=== PATIENT | male | born 1980 | race Caucasian/White ===

== ENCOUNTER → 2019-12-11 | Outpatient (CLI) | payer OTHER ==
--- NOTE | 2019-12-11 15:12 | XR ---
EXAMINATION TYPE: XR ankle complete RT DATE OF EXAM: 12/11/2019 CLINICAL HISTORY: Right ankle pain with no known injury. TECHNIQUE: Frontal, lateral and oblique images of the right ankle are obtained. COMPARISON: None. FINDINGS: There is no acute fracture/dislocation evident in the right ankle. Old well-corticated fra cture fragment is seen distal to the medial malleolus. Smaller old well-corticated fracture fragment distal to the fibula on the oblique view. Minimal degenerative spurring of the anterior process of th e talus. Some flattening of the talus on the lateral view only and osteophyte of the anterior tibia. The ankle mortise appears within normal limits. The overlying soft tissue appears unremarkable. Cent rally lucent possible fat necrosis of the medial soft tissues of the right lower extremity adjacent t o the distal tibial diaphysis. IMPRESSION: 1. No acute fracture or dislocation in the right ankle. 3. Well-corticated fracture fragments distal to the medial and lateral malleolus with small osteophyt e of the distal anterior tibia and some flattening of the talus on the lateral view. 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
--- NOTE | 2019-12-11 15:13 | XR ---
EXAMINATION TYPE: XR Hip Complete RT DATE OF EXAM: 12/11/2019 CLINICAL HISTORY: Right hip pain with no known injury TECHNIQUE: AP and frogleg views of the right hip are obtained. COMPARISON: None. FINDINGS: There is no acute fracture/dislocation evident in the right hip. Small cam deformity of th e right lateral femoral head neck junction. The joint space in the right hip appears within normal li mits. The overlying soft tissue appears unremarkable. IMPRESSION: 1. Small cam deformity of the right lateral femoral head neck junction. This can predispose the patie nt to femoral acetabular impingement syndrome. 2. No acute fracture or dislocation in the right hip.
== END | disposition home or self-care (01) ==
LOC: RADXRMAIN 14:20
PROVIDERS: ATTEND Family Medicine
DX: M21.951 Unspecified acquired deformity of right thigh (principal); M84.471G Pathological fracture, right ankle, subsequent encounter for fracture with delayed healing
CPT/HCPCS: 73502

== ENCOUNTER 2021-02-20 18:56 | Emergency (ER) | payer OTHER ==
[2021-02-20 19:04] VITALS: BP 154/81; PULSE 82; RESP 20; TEMP 97.9
[2021-02-20] MEDS ORDERED: KETOROLAC 15 MG/ML 1 ML VIAL IM STA (19:21)
--- NOTE | 2021-02-20 19:28 | ED ---
Upper Extremity HPI - General Chief Complaint: Extremity Injury, Upper Stated Complaint: hand injury Time Seen by Provider: 02/20/21 19:16 Source: patient, RN notes reviewed Mode of arrival: ambulatory Limitations: no limitations - History of Present Illness Initial Comments: Patient was at the store buying 50# bag of dirt and as he was trying to balance it. It fell bending left wrist backward with most of the weight bending back his fourth and fifth fingers. Patient states that he feels tingling up the left side of his arm up to his elbow. There is no swelling or deformity noted patient denies any other injuries patient states he has not had any pain medication prior to arrival. Patient denies any medical history -: hour(s) (2) Other Extremity Injury: Wrist: Left Other Injuries: none Place: outdoors Severity scale (1-10): 8 Improves With: immobilization Worsens With: movement of extremity Context: injury (Bend backwards carrying a 50 pound bag of wet dirt) Associated Symptoms: denies other symptoms - Related Data Home Medications Medication Instructions Recorded Confirmed Cetirizine HCl [Zyrtec] 10 mg PO DAILY 02/20/21 02/20/21 Guaifenesin/Pseudoephedrne HCl 1 tab PO DAILY PRN 02/20/21 02/20/21 [Mucinex D ER 1,200-120 mg Tab] Pravastatin Sodium [Pravachol] 40 mg PO HS 02/20/21 02/20/21 Previous Rx's Medication Instructions Recorded Ibuprofen [Motrin] 800 mg PO Q6HR #30 tab 02/20/21 Allergies Allergy/AdvReac Type Severity Reaction Status Date / Time Penicillins Allergy Anaphylaxis Verified 02/20/21 20:31 Review of Systems ROS Statement: Those systems with pertinent positive or pertinent negative responses have been documented in the HPI. ROS Other: All systems not noted in ROS Statement are negative. Past Medical History Past Medical History: Hyperlipidemia History of Any Multi-Drug Resistant Organisms: None Reported Past Surgical History: Adenoidectomy, Ear Surgery, Orthopedic Surgery, Tonsillectomy Additional Past Surgical History / Comment(s): rt shoulder, nasal surgery Past Psychological History: No Psychological Hx Reported Smoking Status: Never smoker Past Alcohol Use History: Occasional Past Drug Use History: None Reported General Exam Limitations: no limitations General appearance: alert, in no apparent distress Head exam: Present: atraumatic, normocephalic, normal inspection Eye exam: Present: normal appearance, PERRL, EOMI. Absent: scleral icterus, conjunctival injection, periorbital swelling ENT exam: Present: normal exam, normal oropharynx, mucous membranes moist Neck exam: Present: normal inspection, full ROM. Absent: tenderness, meningismus, lymphadenopathy Respiratory exam: Present: normal lung sounds bilaterally. Absent: respiratory distress, wheezes, rales, rhonchi, stridor, decreased breath sounds Cardiovascular Exam: Present: regular rate, normal rhythm, normal heart sounds. Absent: systolic murmur, diastolic murmur, rubs, gallop, clicks Left Elbow exam: Present: normal inspection, full ROM. Absent: tenderness, swelling, abrasion, laceration, ecchymosis, deformity Forearm Wrist exam: Present: normal inspection, tenderness, other (Unable to flex and extend wrist). Absent: full ROM, swelling, abrasion, laceration, ecchymosis, deformity, dislocation Hand Wrist exam: Present: normal inspection, tenderness (Unable to perform the okay sign with fourth and fifth digits). Absent: full ROM Neuro motor exam: Present: thumb opposition intact, thumb IP flexion intact, thumb adduction intact. Absent: wrist extension intact Vascular: Present: normal capillary refill, radial pulse, ulnar pulse. Absent: vascular compromise Back exam: Present: full ROM. Absent: tenderness, CVA tenderness (R), CVA tenderness (L) Neurological exam: Present: alert, oriented X3, CN II-XII intact Psychiatric exam: Present: normal affect, normal mood Skin exam: Present: warm, dry, intact, normal color. Absent: rash Course Vital Signs 02/20/21 19:00 Temperature 97.9 F Pulse Rate 82 Respiratory 20 Rate Blood Pressure 154/81 O2 Sat by Pulse 100 Oximetry Procedures - Orthopedic Splinting/Casting Injury #1 Side: left Upper Extremity Immobilizer: ulnar gutter, synthetic pre-padded splint Medical Decision Making - Medical Decision Making There is nondisplaced fracture of the fourth metacarpal shaft, no dislocation. Short arm ulnar gutter applied, neurovascularly intact prior to and post splint. patient will referred to orthopedic associates. Case discussed with Dr. Hassan who is agreeable to this plan of care Disposition Clinical Impression: Metacarpal bone fracture Disposition: HOME SELF-CARE Condition: Good Instructions (If sedation given, give patient instructions): Hand Fracture (ED) Additional Instructions: Rest, ice, wear splint as applied, and elevate. Take medication as prescribed and follow-up with orthopedics in 1 week. Prescriptions: Ibuprofen [Motrin] 800 mg PO Q6HR #30 tab Is patient prescribed a controlled substance at d/c from ED?: No Referrals: Mandeep Flores Jr, DO [Primary Care Provider] - 1-2 days Fazal Almonte MD [STAFF PHYSICIAN] - 1-2 days Time of Disposition: 20:51
--- NOTE | 2021-02-20 19:55 | XR ---
Result: History: Pain. Comparison: None available. Technique: 4 views of the right wrist. Findings: There is nondisplaced fracture of the fourth metacarpal shaft. No evidence of dislocation. The joint spaces are preserved. Impression: Fourth metacarpal fracture.
[2021-02-20] MEDS ORDERED: ACET/COD 300 MG/30 MG STARTER PACK 6 TAB BTL PO STA (20:51)
[2021-02-20] MEDS ORDERED: HYDROcodone/APAP 5-325MG 1 EACH TAB PO STA (21:01)
== END 2021-02-20 21:07 | disposition home or self-care (01) ==
LOC: EC 18:56
DX: S62.355A Nondisplaced fracture of shaft of fourth metacarpal bone, left hand, initial encounter for closed fracture (principal); E78.5 Hyperlipidemia, unspecified; Z88.0 Allergy status to penicillin; W18.30XA Fall on same level, unspecified, initial encounter; Y92.89 Other specified places as the place of occurrence of the external cause
CPT/HCPCS: 73110; 99284; 96372; 29125; J1885

== ENCOUNTER 2024-04-23 16:57 | Emergency (ER) | payer OTHER ==
[2024-04-23 17:10] VITALS: TEMP 97.6
--- NOTE | 2024-04-23 17:52 | ED ---
Allergic Reaction HPI - General Chief complaint: Allergic Reaction Stated complaint: Hives,Back Pain Time Seen by Provider: 04/23/24 17:10 Source: patient, RN notes reviewed Mode of arrival: ambulatory Limitations: no limitations - History of Present Illness Initial Comments: This is a 43-year-old male with a history of seasonal allergies who presents em ergency department complaint of urticaria with neuritis and ear swelling that began this afternoon. Patient states that he was cleaning his house when he began to feel mildly short of breath and experience hives. States that the shortness of breath has improved since arrival to the emergency department. He denies tongue or lip swelling, that he has been experiencing edema of the bilateral ears with redness. Patient denies use of new perfumes, soaps, lotions, detergents. Was prescribed Flexeril approximately 2 weeks ago by his primary care provider and has taken a few doses of this medication for back pain. took a Benadryl at home this evening when symptoms arose. - Related Data Home Medications Medication Instructions Recorded Confirmed Cetirizine HCl [Zyrtec] 10 mg PO DAILY 02/20/21 02/20/21 Guaifenesin/Pseudoephedrne HCl 1 tab PO DAILY PRN 02/20/21 02/20/21 [Mucinex D ER 1,200-120 mg Tab] Pravastatin Sodium [Pravachol] 40 mg PO HS 02/20/21 02/20/21 Previous Rx's Medication Instructions Recorded Ibuprofen [Motrin] 800 mg PO Q6HR #30 tab 02/20/21 Famotidine [Pepcid] 20 mg PO BID #10 tablet 04/23/24 predniSONE 50 mg PO DAILY #5 tab 04/23/24 Allergies Allergy/AdvReac Type Severity Reaction Status Date / Time Penicillins Allergy Anaphylaxis Verified 04/23/24 17:10 Review of Systems ROS Statement: Those systems with pertinent positive or pertinent negative responses have been documented in the HPI. ROS Other: All systems not noted in ROS Statement are negative. Past Medical History Past Medical History: No Reported History Additional Past Medical History / Comment(s): issues with back pain History of Any Multi-Drug Resistant Organisms: None Reported Past Surgical History: Adenoidectomy, Ear Surgery, Orthopedic Surgery, Tonsillectomy Additional Past Surgical History / Comment(s): rt shoulder, nasal surgery Past Psychological History: No Psychological Hx Reported Smoking Status: Never smoker Past Alcohol Use History: Occasional Past Drug Use History: Marijuana General Exam Limitations: no limitations General appearance: alert, in no apparent distress Head exam: Present: atraumatic, normocephalic, normal inspection Eye exam: Present: normal appearance, PERRL, EOMI. Absent: scleral icterus, conjunctival injection, periorbital swelling Expanded Ear exam: Present: other (auricular erythema and edema) Mouth exam: Present: normal external inspection Throat exam: normal inspection. negative: tonsillar erythema, tonsillomegaly Neck exam: Present: normal inspection. Absent: tenderness, meningismus, lymphadenopathy Respiratory exam: Present: normal lung sounds bilaterally. Absent: respiratory distress, wheezes, rales, rhonchi, stridor Cardiovascular Exam: Present: regular rate, normal rhythm, normal heart sounds. Absent: systolic murmur, diastolic murmur, rubs, gallop, clicks GI/Abdominal exam: Present: soft, normal bowel sounds. Absent: distended, tenderness, guarding, rebound, rigid Extremities exam: Present: normal inspection, full ROM, normal capillary refill. Absent: tenderness, pedal edema, joint swelling, calf tenderness Back exam: Present: normal inspection, tenderness (lumbar) Neurological exam: Present: alert, oriented X3, CN II-XII intact Psychiatric exam: Present: normal affect, normal mood Skin exam: Present: warm, dry, rash, urticaria (diffuse, most notable over the superior lower extremities) Course Vital Signs 04/23/24 17:04 Temperature 97.6 F Pulse Rate 114 H Respiratory 20 Rate Blood Pressure 145/93 O2 Sat by Pulse 96 Oximetry Medical Decision Making - Medical Decision Making Was pt. sent in by a medical professional or institution (, PA, SOLAR PHOTOVOLTAIC INSTALLER, urgent care, hospital, or detention...) When possible be specific @ -No Did you speak to anyone other than the patient for history (EMS, parent, family, police, friend...)? What history was obtained from this source @ -No Did you review nursing and triage notes (agree or disagree)? Why? @ -I reviewed and agree with nursing and triage notes Were old charts reviewed (outside hosp., previous admission, EMS record, old EKG, old radiological studies, urgent care reports/EKG's, detention records)? Report findings @ -No old charts were reviewed Differential Diagnosis (chest pain, altered mental status, abdominal pain women, abdominal pain men, vaginal bleeding, weakness, fever, dyspnea, syncope, headache, dizziness, GI bleed, back pain, seizure, CVA, palpatations, mental health, musculoskeletal)? @ -urticaria, allergic reaction, angioedema, allergic dermatitis, contact dermatitis, this list is not all inclusive EKG interpreted by me (3pts min.). @ -none X-rays interpreted by me (1pt min.). @ -None done CT interpreted by me (1pt min.). @ -None done U/S interpreted by me (1pt. min.). @ -None done What testing was considered but not performed or refused? (CT, X-rays, U/S, labs)? Why? @ -None What meds were considered but not given or refused? Why? @ -None Did you discuss the management of the patient with other professionals (professionals i.e. , PA, SOLAR PHOTOVOLTAIC INSTALLER, lab, RT, psych nurse, psychosocial rehabilitation counselor, automatic buffer, teacher, sba business development officer, watch case polisher)? Give summary @ -No Was smoking cessation discussed for >3mins.? @ -No Was critical care preformed (if so, how long)? @ -No Were there social determinants of health that impacted care today? How? (Homelessness, low income, unemployed, alcoholism, drug addiction, transportation, low edu. Level, literacy, decrease access to med. care, senior care, rehab)? @ -No Was there de-escalation of care discussed even if they declined (Discuss DNR or withdrawal of care, Hospice)? DNR status @ -No What co-morbidities impacted this encounter? (DM, HTN, Smoking, COPD, CAD, Cancer, CVA, ARF, Chemo, Hep., AIDS, mental health diagnosis, sleep apnea, morbid obesity)? @ -None Was patient admitted / discharged? Hospital course, mention meds given and route, prescriptions, significant lab abnormalities, going to OR and other pertinent info. @ -Discharged. 43-year-old male with urticaria. On examination patient has widespread urticaria that is blanchable. Patient states this area is also pruritic. Patient is stable and resting comfortably on room air with a oxygen saturation of 100. He is in no signs of acute distress or difficulty breathing. There are no signs of angioedema, no lip swelling or tongue swelling. Patient does have bilateral auricular erythema and edema. He is symptomatically treated with steroids, Benadryl, and Pepcid. On reevaluation, he states that his swelling of his ears is getting better and the itching has begun to subside. Patient is still resting comfortably and is stable for discharge, BP 130s/80s and HR 70s. He will be sent a prescription for steroids and recommend to continue Benadryl and Pepcid at home as needed for relief. Recommend the patient follows up with her primary care provider this week for further evaluation. All questions answered at bedside and strict return parameters discussed with the patient he is verbalized understanding. Case discussed with Dr. Beltran. Undiagnosed new problem with uncertain prognosis? @ -No Drug Therapy requiring intensive monitoring for toxicity (Heparin, Nitro, Insulin, Cardizem)? @ -No Were any procedures done? @ -No Diagnosis/symptom? @ -urticuaria, allergic reaction Acute, or Chronic, or Acute on Chronic? @ -acute Uncomplicated (without systemic symptoms) or Complicated (systemic symptoms)? @ -uncomplicated Side effects of treatment? @ -No Exacerbation, Progression, or Severe Exacerbation? @ -No Poses a threat to life or bodily function? How? (Chest pain, [place], [place], pneumonia, PE, COPD, DKA, ARF, appy, cholecystitis, CVA, Diverticulitis, Homicidal, Suicidal, threat to staff... and all critical care pts) @ -No Disposition Clinical Impression: Urticaria, Allergic reaction Disposition: HOME SELF-CARE Condition: Good Instructions (If sedation given, give patient instructions): Urticaria (ED) Additional Instructions: Complete full course of steroids as prescribed. Take Benadryl and Pepcid as needed for continued antihistamine relief. Return to the emergency department for any new or worsening symptoms. Recommend follow-up with your primary care provider this week for further evaluation. Prescriptions: Famotidine [Pepcid] 20 mg PO BID #10 tablet predniSONE 50 mg PO DAILY #5 tab Is patient prescribed a controlled substance at d/c from ED?: No Referrals: Lela Sun MD [Primary Care Provider] - 1-2 days Time of Disposition: 18:45
[2024-04-23] MEDS: FAMOTIDINE 20 MG TAB PO STA (18:13)
[2024-04-23] MEDS: diphenhydrAMINE 50 MG/ML 1 ML VIAL IM STA (18:14)
[2024-04-23] MEDS: methylPREDNISolone SOD SUCCI 125 MG/2 ML VIAL IM ONE (18:17)
[2024-04-23 19:04] VITALS: BP 130/86; PULSE 75; RESP 18
== END 2024-04-23 19:05 | disposition home or self-care (01) ==
LOC: EC 16:57
DX: L50.0 Allergic urticaria (principal); Z88.0 Allergy status to penicillin
CPT/HCPCS: 99283; 96372 ×2; J1200; J2919

== ENCOUNTER 2024-04-27 02:48 | Emergency (ER) | payer OTHER ==
[2024-04-27 02:57] VITALS: RESP 20
[2024-04-27] MEDS: LIDOCAINE 4% PATCH TOPICAL ONE (03:19)
[2024-04-27] MEDS: DEXAMETHASONE SOD PHOSPHATE 10 MG/ML 1 ML VIAL IM STA (03:20)
[2024-04-27] MEDS: HYDROmorphone 0.5 MG/0.5 ML SYRINGE IM STA ×2 (03:20→04:05)
[2024-04-27] MEDS: KETOROLAC 15 MG/ML 1 ML VIAL IM STA (03:21)
--- NOTE | 2024-04-27 04:34 | ED ---
Back Pain HPI <Flakito Anglin - Last Filed: 04/27/24 05:31> - General Source: patient Limitations: no limitations <Deacon Donnelly - Last Filed: 04/27/24 16:43> - General Chief Complaint: Back Pain/Injury Stated Complaint: back pain Time Seen by Provider: 04/27/24 02:57 - History of Present Illness Initial Comments: 43-year-old male presenting with chief complaint of back pain. Patient has been having lower back pain for the last 10 days. He saw his PCP and was given a muscle relaxer which did little to improve the pain. He denies any known injury or trauma. He did receive a steroid when he was here recently for hives, he states that the steroids did not do much to help his pain either. He does have radiation of pain down the right leg. No loss of bowel or bladder control or saddle paresthesia. He has been having difficulty sleeping the last 2 nights due to pain. (Deacon Donnelly) - Related Data Home Medications Medication Instructions Recorded Confirmed Cetirizine HCl [Zyrtec] 10 mg PO DAILY 02/20/21 02/20/21 Guaifenesin/Pseudoephedrne HCl 1 tab PO DAILY PRN 02/20/21 02/20/21 [Mucinex D ER 1,200-120 mg Tab] Pravastatin Sodium [Pravachol] 40 mg PO HS 02/20/21 02/20/21 Previous Rx's Medication Instructions Recorded Ibuprofen [Motrin] 800 mg PO Q6HR #30 tab 02/20/21 Famotidine [Pepcid] 20 mg PO BID #10 tablet 04/23/24 predniSONE 50 mg PO DAILY #5 tab 04/23/24 Ibuprofen [Motrin] 600 mg PO Q8HR PRN #20 tab 04/27/24 Lidocaine 5% Patch [Lidoderm] 1 patch TOPICAL DAILY #10 patch 04/27/24 methocarbamoL [Robaxin-750] 1,500 mg PO TID #42 tab 04/27/24 Allergies Allergy/AdvReac Type Severity Reaction Status Date / Time Penicillins Allergy Anaphylaxis Verified 04/27/24 02:53 Review of Systems ROS Other: All systems not noted in ROS Statement are negative. <Flakito Anglin - Last Filed: 04/27/24 05:31> ROS Other: All systems not noted in ROS Statement are negative. <ConyJohnnydalila - Last Filed: 04/27/24 16:43> ROS Statement: Those systems with pertinent positive or pertinent negative responses have been documented in the HPI. Past Medical History Past Medical History: No Reported History Additional Past Medical History / Comment(s): issues with back pain History of Any Multi-Drug Resistant Organisms: None Reported Past Surgical History: Adenoidectomy, Ear Surgery, Orthopedic Surgery, Tonsillectomy Additional Past Surgical History / Comment(s): rt shoulder, nasal surgery Past Psychological History: No Psychological Hx Reported Smoking Status: Never smoker Past Alcohol Use History: Occasional Past Drug Use History: Marijuana <ConyJohnnydalila - Last Filed: 04/27/24 16:43> General Exam Limitations: no limitations General appearance: alert, in no apparent distress Head exam: Present: atraumatic, normocephalic Eye exam: Present: normal appearance, EOMI Neck exam: Present: normal inspection. Absent: meningismus Respiratory exam: Absent: respiratory distress Cardiovascular Exam: Present: regular rate Extremities exam: Present: normal inspection Back exam: Present: normal inspection, muscle spasm, paraspinal tenderness Neurological exam: Present: alert, oriented X3 Psychiatric exam: Present: normal affect, normal mood Skin exam: Present: warm, dry <Deacon Donnelly - Last Filed: 04/27/24 16:43> Course Vital Signs 04/27/24 04/27/24 02:53 06:05 Temperature 97.0 F L 98.0 F Pulse Rate 73 70 Respiratory 20 20 Rate Blood Pressure 142/86 123/79 O2 Sat by Pulse 98 97 Oximetry Medical Decision Making <Deacon Donnelly - Last Filed: 04/27/24 16:43> - Medical Decision Making Was pt. sent in by a medical professional or institution (, PA, LARD RENDERER, urgent care, hospital, or longterm...) When possible be specific @ -No Did you speak to anyone other than the patient for history (EMS, parent, family, police, friend...)? What history was obtained from this source @ -No Did you review nursing and triage notes (agree or disagree)? Why? @ -I reviewed and agree with nursing and triage notes Were old charts reviewed (outside hosp., previous admission, EMS record, old EKG, old radiological studies, urgent care reports/EKG's, longterm records)? Report findings @ -No old charts were reviewed Differential Diagnosis (chest pain, altered mental status, abdominal pain women, abdominal pain men, vaginal bleeding, weakness, fever, dyspnea, syncope, headache, dizziness, GI bleed, back pain, seizure, CVA, palpatations, mental health, musculoskeletal)? @ - MDM Differential Back Pain: Strain, zoster, cauda equina syndrome, epidural abscess, vertebral osteomyelitis, discitis, fracture, subluxation, disc herniation, DJD, spinal stenosis, dissection, AAA, pancreatitis, peptic ulcer disease, pyelonephritis, kidney stone this is not meant to be an all-inclusive list. EKG interpreted by me (3pts min.). @ -As above X-rays interpreted by me (1pt min.). @ -None done CT interpreted by me (1pt min.). @ -CT ordered report is pending U/S interpreted by me (1pt. min.). @ -None done What testing was considered but not performed or refused? (CT, X-rays, U/S, labs)? Why? @ -None What meds were considered but not given or refused? Why? @ -None Did you discuss the management of the patient with other professionals (professionals i.e. , PA, LARD RENDERER, lab, RT, psych nurse, public health social worker, rehabilitation coordinator, teacher, mortgage loan officer, patient case coordinator)? Give summary @ -No Was smoking cessation discussed for >3mins.? @ -No Was critical care preformed (if so, how long)? @ -No Were there social determinants of health that impacted care today? How? (Homelessness, low income, unemployed, alcoholism, drug addiction, transportation, low edu. Level, literacy, decrease access to med. care, residential, rehab)? @ -No Was there de-escalation of care discussed even if they declined (Discuss DNR or withdrawal of care, Hospice)? DNR status @ -No What co-morbidities impacted this encounter? (DM, HTN, Smoking, COPD, CAD, Cancer, CVA, ARF, Chemo, Hep., AIDS, mental health diagnosis, sleep apnea, morbid obesity)? @ -None Was patient admitted / discharged? Hospital course, mention meds given and route, prescriptions, significant lab abnormalities, going to OR and other pertinent info. @ -43-year-old male presenting chief complaint of lower back pain. No red flag symptoms. He is given pain medication and on reassessment he reports little improvement. Patient is having difficulty with range of motion particularly standing. CT is obtained. Patient signed out to my attending Dr. Anglin for pending CT results. (Deacon Donnelly) Disposition Is patient prescribed a controlled substance at d/c from ED?: No <Flakito Anglin - Last Filed: 04/27/24 05:31> <Deacon Donnelly - Last Filed: 04/27/24 16:43> Clinical Impression: Low back pain Disposition: HOME SELF-CARE Condition: Fair Instructions (If sedation given, give patient instructions): Acute Low Back Pain (ED) Prescriptions: Lidocaine 5% Patch [Lidoderm] 1 patch TOPICAL DAILY #10 patch Ibuprofen [Motrin] 600 mg PO Q8HR PRN #20 tab PRN Reason: Pain methocarbamoL [Robaxin-750] 1,500 mg PO TID #42 tab Referrals: None,Stated [REFERRING] - 1-2 days John Son DO [Doctor of Osteopathic Medicine] - 1-2 days
--- NOTE | 2024-04-27 05:18 | CT ---
EXAM: CT Lumbar Spine Without Intravenous Contrast CLINICAL HISTORY: ITS.REASON CT Reason: pain TECHNIQUE: Axial computed tomography images of the lumbar spine without intravenous contrast. CTDI is 47.7 mGy and DLP is 1571.7 mGy-cm. This CT exam was performed using one or more of the following dose reduction techniques: automated exposure control, adjustment of the mA and/or kV according to patient size, and/or use of iterative reconstruction technique. COMPARISON: No relevant prior studies available. FINDINGS: Vertebrae: Unremarkable. No acute fracture. There is mild wedging of the T12 and L1 segments, which is likely physiologic. Discs/spinal canal/neural foramina: No acute findings. No spinal canal stenosis. Soft tissues: Unremarkable. IMPRESSION: No evidence of acute lumbar spine pathology.
[2024-04-27] MEDS: traMADol 50 MG STARTER PACK 3 TAB BTL PO STA (06:03)
[2024-04-27 06:06] VITALS: BP 123/79; PULSE 70; TEMP 98
== END 2024-04-27 06:05 | disposition home or self-care (01) ==
LOC: EC 02:48
DX: M54.50 Low back pain, unspecified (principal); Z88.0 Allergy status to penicillin
CPT/HCPCS: 72131; 99284; 96372 ×4; J1100; J1885; J1170